=== PATIENT | female | born 1960 | race Caucasian/White ===

== ENCOUNTER 2016-12-19 10:08 | Emergency (ER) | payer BC ==
[~2016-12-19] VITALS: Ht 157.5 cm; Wt 53.5 kg
[~2016-12-19 10:08] MED LIST: CYCL-36 PO; IBUP-238 PO; Z.0.NO CURRENT MEDS
[2016-12-19 10:12] VITALS: PULSE 75; RESP 16; TEMP 98.4; O2SAT 98
[2016-12-19] MEDS ORDERED: TETANUS/DIPHTHERIA TOXOID ADULT 0.5 ML VIAL IM ONE (10:30)
--- NOTE | 2016-12-19 10:35 | PD ---
HPI Chief Complaint: Injury Time Seen by Provider: :23 Travel History International Travel<30 days: No Contact w/Intl Traveler<30days: No Traveled to known affect area: No History of Present Illness HPI This 56-year-old female says that Sunday night she slammed her left fifth finger in a sliding glass door. His been having pain and swelling of the finger since then. She did sustain lacerations. PFSH Past Medical History Hx Anticoagulant Therapy: No Cardiovascular Problems: Yes (HTN) Diabetes: No Diminished Hearing: No Hypertension: Yes Tetanus Vaccination: Unknown ?: Not Tubal Ligation: Yes Past Surgical History Tonsillectomy: Yes Social History Alcohol Use: Yes (OCC) Tobacco Use: No Substance Use: No Allergies-Medications (Allergen,Severity, Reaction): Coded Allergies: No Known Allergies (Verified , 12/19/16) Reported Meds & Prescriptions Reported Meds & Active Scripts Active No Active Prescriptions or Reported Medications Physical Exam Narrative GENERAL: Well-developed female SKIN: Focused skin assessment warm/dry. HEAD: Atraumatic. Normocephalic. EYES: Pupils equal and round. No scleral icterus. No injection or drainage. ENT: No nasal bleeding or discharge. Mucous membranes pink and moist. NECK: Trachea midline. No JVD. MUSCULOSKELETAL: No obvious deformities. No clubbing. No cyanosis. No edema. Limitation of the left fifth finger shows no tenderness at the metacarpophalangeal joint. There is swelling greatest over the middle phalanx. There were 2 wounds overlying the middle phalanx once is a 1 cm wound on the dorsal surface. The other is a 1 cm wound on the radial surface of the middle phalanx. There is very limited flexion and extension of the finger. There is diminished sensation of the fingertip NEUROLOGICAL: Awake and alert. No obvious cranial nerve deficits. Motor grossly within normal limits. Normal speech. PSYCHIATRIC: Appropriate mood and affect; insight and judgment normal. Data Data Last Documented VS Vital Signs Date Time Temp Pulse Resp B/P Pulse Ox O2 Delivery O2 Flow Rate FiO2 12/19/16 10:12 98.4 75 16 98 Orders Finger ([id number]) (12/19/16 10:26) Tetanus/Diphtheria Tox Adult (Tetanus/Di (12/19/16 10:30) Cephalexin (Keflex) (12/19/16 11:15) MDM Medical Decision Making Medical Screen Exam Complete: Yes Emergency Medical Condition: Yes Medical Record Reviewed: Yes Differential Diagnosis Differential includes finger laceration, fractured finger, tendon injury Narrative Course X-ray shows a fracture through the distal two thirds of the shaft of the middle phalanx of the left fifth finger. This is an open fracture. I have discussed the case with Dr. Scott. He asked that we clean the wounds and put the patient on antibiotics. The finger will be splinted. She is to call his office for appointment in the morning Diagnosis Primary Impression: Fracture of finger of left hand Qualified Code: S62.657B - Open nondisplaced fracture of middle phalanx of left little finger, initial encounter Referrals: Artis Blmu MD Departure Forms: Tests/Procedures, Work Release Enter return to work date: December 21, 2016 Additional Instructions: Called Dr. Scott today for appointment tomorrow Scripts Oxycodone-Acetaminophen (Percocet)5-325 mg Tab1-2 Tab PO Q6H PRN (PAIN) #20 TAB Ref 0 Prov:Brian Hastings MD 12/19/16 Cephalexin (Keflex)500 Mg [id number] Mg PO Q6H 7 Days Ref 0 Prov:Brian Hastings MD 12/19/16 Disposition: 01 DISCHARGE HOME Condition: Stable Brian Hastings MD December 19, 2016 10:35
[2016-12-19] MEDS ORDERED: CEPHALEXIN MONOHYDRATE 500 MG CAP PO ONE (11:15)
--- NOTE | 2016-12-19 11:15 | RADHPO ---
EXAM DATE/TIME: 12/19/2016 10:39 [facility] COMPARISON: No previous studies available for comparison. INDICATIONS : Patient slammed her finger in a sliding glass door Sunday evening. MEDICAL HISTORY : Hypertension. SURGICAL HISTORY : None. ENCOUNTER: Initial ACUITY: 3 days PAIN SCORE: 9/10 LOCATION: Left Hand, Fifth digit. FINDINGS: 3 views of the left hand fifth digit demonstrate a minimally displaced oblique fracture of the fifth digit middle phalanx in the distal aspect. Distal fragment is displaced volarly by approximately 2 mm . Fracture line does not appear to extend into the distal interphalangeal joint. There is adjacent so ft tissue swelling. No radiopaque foreign body is seen. CONCLUSION: Minimally displaced fracture of the left fifth digit middle phalanx, as above. Bhavesh Up MD on December 19, 2016 at 11:12 Board Certified Radiologist. This report was verified electronically.
[2016-12-19] MEDS ORDERED: CEPH-460 PO (11:16)
[2016-12-19] MEDS ORDERED: PERC5TAB12 PO (11:17)
[2016-12-19] MEDS ORDERED: BUPIVACAINE HCL PF 0.5% 10 ML VIAL INFIL ONE (11:30)
[2016-12-19] MEDS ORDERED: LIDOCAINE HCL 1% 50 ML VIAL INFIL ONE (11:30)
--- NOTE | 2016-12-19 11:40 | PD ---
Physical Exam Time Seen by Provider: 11:15 Narrative I was asked by Dr. Hastings to irrigate the wound of this patient. Please see his note for further details. Data Data Last Documented VS Vital Signs Date Time Temp Pulse Resp B/P Pulse Ox O2 Delivery O2 Flow Rate FiO2 12/19/16 10:12 98.4 75 16 98 Orders Finger ([id number]) (12/19/16 10:26) Tetanus/Diphtheria Tox Adult (Tetanus/Di (12/19/16 10:30) Cephalexin (Keflex) (12/19/16 11:15) Bupivacaine Pf 0.5% Inj (Marcaine Pf 0.5 (12/19/16 11:30) Lidocaine 1% Inj (50 Ml) (Xylocaine 1% I (12/19/16 11:30) Splint Or Brace Apply/Monitor (12/19/16 11:19) Finger Splint (12/19/16 ) MDM Medical Record Reviewed: Yes Supervised Visit with ELOY: Yes Procedures Procedure Narrative Irrigation: The area of the laceration was prepped with Betadine. Digital block was performed using 1% lidocaine and 0.5% bupivacaine. The wound was copiously irrigated and explored without evidence of foreign body, tendon injury or neurovascular injury. A sterile dressing was applied. The patient was advised to keep the dressing clean and dry. Patient tolerated the procedure well. Diagnosis Primary Impression: Fracture of finger of left hand Qualified Code: S62.657B - Open nondisplaced fracture of middle phalanx of left little finger, initial encounter Referrals: Artis Blum MD call for appointment Patient Instructions: General Instructions, Finger Fracture (ED), Finger Laceration (ED) Departure Forms: Work Release, Enter return to work date: Tests/Procedures Additional Instruction: Called Dr. Scott today for appointment tomorrow Scripts Oxycodone-Acetaminophen (Percocet)5-325 mg Tab1-2 Tab PO Q6H PRN (PAIN) #20 TAB Ref 0 Prov:Brian Hastings MD 12/19/16 Cephalexin (Keflex)500 Mg [id number] Mg PO Q6H 7 Days Ref 0 Prov:Brian Hastings MD 12/19/16 Disposition: 01 DISCHARGE HOME Condition: Stable Emelyn Madrigal December 19, 2016 11:40
== END 2016-12-19 11:48 | disposition home or self-care (01) ==
LOC: PHEFT 10:08
DX: S62.637B Displaced fracture of distal phalanx of left little finger, initial encounter for open fracture (principal); I10 Essential (primary) hypertension; W23.0XXA Caught, crushed, jammed, or pinched between moving objects, initial encounter; Z23 Encounter for immunization
CPT/HCPCS: 64450; 73140; 90471; 90714